=== PATIENT | male | born 1980 | race Caucasian/White ===

== ENCOUNTER → 2018-05-30 | Outpatient (CLI) | payer BC ==
[~2018-05-30] VITALS: Ht 188 cm; Wt 112.6 kg
[~2018-05-30] MED LIST: COZAAR100 MG PO; INVOKAMET1 PO; LIPITOR 40MG TA40 MG PO; LOFIBRA160 MG PO; NEURONTIN300 MG/CAP PO
[2018-05-30 08:25] VITALS: BP 138/81; PULSE 89
[2018-05-30 10:05] VITALS: BP 131/83; PULSE 67
== END ==
LOC: COL.RAD 08:09
DX: M51.17 Intervertebral disc disorders with radiculopathy, lumbosacral region (principal)
CPT/HCPCS: J3301

== ENCOUNTER → 2020-02-08 | Outpatient (CLI) | payer BC ==
[~2020-02-08] VITALS: Ht 188 cm; Wt 115.8 kg
[2020-02-08 12:05] VITALS: BP 142/82; PULSE 86
[2020-02-08 13:15] VITALS: BP 144/84; PULSE 88
--- NOTE | 2020-02-08 13:35 | NUR ---
awaiting pts ride home to arrive pt denies complaints at this time.
--- NOTE | 2020-02-08 13:56 | NUR ---
awaiting ride home.
--- NOTE | 2020-02-08 14:05 | NUR ---
Pt out to car per wheelchair. Pt up and into car without assistance.
== END ==
LOC: COL.RAD 11:45
DX: M48.061 Spinal stenosis, lumbar region without neurogenic claudication (principal)
CPT/HCPCS: J3301